=== PATIENT | male | born 1980 | race Caucasian/White ===

== ENCOUNTER 2017-03-03 17:44 | Emergency (ER) | payer SELFPAY ==
[2017-03-03] MEDS ORDERED: Dexamethasone 4 mg/1 ml IM STA (18:55)
[2017-03-03 19:07] VITALS: RESP 20; O2SAT 96
--- NOTE | 2017-03-03 19:17 | C.PDOC ---
History Of Present Illness 36 year old male presents to the ED for evaluation of fever, generalized body aches, headache and sore throat which began last night. Patient took Ibuprofen and Fioricet for his symptoms without significant relief. He denies cough, abdominal pain, vomiting and diarrhea. Time Seen by Provider: 03/03/17 18:20 Chief Complaint (Nursing): Fever History Per: Patient, Other (friends ) History/Exam Limitations: no limitations Onset/Duration Of Symptoms: Hrs Current Symptoms Are (Timing): Still Present Location Of Pain: Throat, Diffuse Myalgias Associated Symptoms: Fever, Sore Throat. denies: Cough, Vomiting, Diarrhea Additional History Per: Patient Past Medical History Reviewed: Historical Data, Nursing Documentation, Vital Signs Vital Signs: Last Vital Signs Temp 101.2 F H 03/03/17 19:27 Pulse 94 H 03/03/17 19:27 Resp 20 03/03/17 19:27 BP 110/69 03/03/17 19:27 Pulse Ox 96 03/03/17 19:38 - Medical History PMH: No Chronic Diseases Surgical History: No Surg Hx Family History: States: Unknown Family Hx - Social History Hx Alcohol Use: No Hx Substance Use: No - Immunization History Hx Tetanus Toxoid Vaccination: No Hx Influenza Vaccination: No Hx Pneumococcal Vaccination: No Review Of Systems Constitutional: Positive for: Fever ENT: Positive for: Throat Pain Respiratory: Negative for: Cough Gastrointestinal: Negative for: Vomiting, Abdominal Pain, Diarrhea Musculoskeletal: Positive for: Other (generalized body aches ) Neurological: Positive for: Headache Physical Exam - Physical Exam Appears: Non-toxic, No Acute Distress Skin: Normal Color, Warm, Dry Head: Atraumatic, Normacephalic Eye(s): bilateral: Normal Inspection Ear(s): Bilateral: Normal Nose: Normal, No Discharge Oral Mucosa: Moist Throat: Erythema (tonsillar), Exudate (right tonsillar) Neck: Supple Chest: Symmetrical, No Deformity, No Tenderness Cardiovascular: Rhythm Regular, No Murmur Respiratory: Normal Breath Sounds, No Rales, No Rhonchi, No Wheezing Gastrointestinal/Abdominal: Soft, No Tenderness, No Guarding, No Rebound Neurological/Psych: Normal Speech, Normal Cognition ED Course And Treatment O2 Sat by Pulse Oximetry: 96 (on RA) Pulse Ox Interpretation: Normal Medical Decision Making Medical Decision Making: Impression: 36 year old male with fever, generalized body aches, headache, sore throat Plan: * Throat culture * Influenza A/B * Rapid Strep * Decadron IM * Tylenol PO * reassess and disposition Progress: Decadron IM and Tylenol PO administered Influenza A/B and Rapid strep test ordered; both tests resulted negative. On reassessment, patient is resting comfortably, showing no signs of distress and is stable for discharge with Rx. Patient is advised to follow up with his PMD within 1-2 days for further evaluation and/or return to the ED if symptoms persist or worsen. Disposition Counseled Patient/Family Regarding: Diagnosis, Need For Followup, Rx Given - Disposition Referrals: [facility] [Outside] [facility] [Outside] Disposition: HOME/ ROUTINE Disposition Time: 19:15 Condition: STABLE Additional Instructions: Take Tylenol or Motrin alternating every 4-6 hours for Fever 100.4F or higher. Rest and drink plenty of fluids. Try vanilla ice cream to improve eating/ drinking, this is cold soothing and tastes good. May also try lozenges or cepacol spary over the counter. Instructions: Pharyngitis (ED), Fever in Adults (GEN) Forms: [facility] ([place]) - POA Present On Arrival: None - Clinical Impression Clinical Impression: Fever, Pharyngitis - PA / [employer]NA[employer] / Resident Statement MD/DO has reviewed & agrees with the documentation as recorded. - Scribe Statement The provider has reviewed the documentation as recorded by the Scribe ([place]) All medical record entries made by the Scribe were at my direction and personally dictated by me. I have reviewed the chart and agree that the record accurately reflects my personal performance of the history, physical exam, medical decision making, and the department course for this patient. I have also personally directed, reviewed, and agree with the discharge instructions and disposition.
[2017-03-03 19:27] VITALS: BP 110/69; PULSE 94; TEMP 101.2
== END 2017-03-03 19:33 | disposition home or self-care (01) ==
LOC: C.ER 17:44
DX: J02.9 Acute pharyngitis, unspecified (principal); R50.9 Fever, unspecified
CPT/HCPCS: 87070; 87430; 87804; 96372; 99285; J1100